=== PATIENT | female | born 1940 | race African-American/Black ===

== ENCOUNTER 2019-04-08 12:02 | Emergency (ER) | payer MEDICARE ==
[~2019-04-08] VITALS: Ht 172.7 cm; Wt 65.0 kg
[~2019-04-08 12:02] MED LIST: DONE5TAB7; GEMF600T; IBUP-2030; LOSA100T3; METO10TA3
[2019-04-08 12:38] LABS: BASOPHILS % 0.9 % (0.0-2.0); EOSINOPHILS % 6.5 % (0.0-5.0); HEMATOCRIT. 33.8 % (36.0-48.0); LYMPHOCYTES % 26.9 % (20.0-50.0); MEAN CORPUSCULAR HEMOGLOBIN 25.8 pg (28.0-32.0); MEAN CORPUSCULAR VOLUME 79.6 fL (81.0-99.0); MEAN PLATELET VOLUME 7.8 fl (7.4-10.4); MONOCYTES % 9.2 % (2.0-8.0); NEUTROPHILS % 56.5 % (40.0-76.0); PLATELET 264 x1000/uL (130-400); RED BLOOD CELL COUNT 4.25 mill/uL (4.2-5.4); RED CELL DISTRIBUTION WIDTH 15.4 % (11.6-14.6)
[2019-04-08 12:54] LABS: CHLORIDE 109 mEq/L (98-107)
[2019-04-08 13:14] LABS: CLARITY URINE CLEAR (CLEAR); COLOR URINE YELLOW (YELLOW); KETONES URINE NEGATIVE (NEGATIVE); LEUKOCYTE ESTERASE URINE NEGATIVE (NEGATIVE); NITRITE URINE NEGATIVE (NEGATIVE); OCCULT BLOOD URINE NEGATIVE (NEGATIVE); PH URINE 6.5 (4.5-8.0); PROTEIN URINE TRACE (NEGATIVE); SPECIFIC GRAVITY URINE 1.013 (1.005-1.030); UROBILINOGEN URINE 0.2 E.U./dL (0.2-1.0)
[2019-04-08 13:46] LABS: INR 1.1; PROTHROMBIN TIME 11.2 sec (9.6-11.0)
[2019-04-08] MEDS ORDERED: ACETAMINOPHEN 325MG TABLET PO PRN (15:15)
[2019-04-08] MEDS ORDERED: ONDANSETRON HCL 4MG/2ML INJ IV PRN (15:15)
[2019-04-08] MEDS ORDERED: DEXTROSE 50% WATER 50ML SYRINGE IV PRN (15:15)
[2019-04-08] MEDS ORDERED: LOSARTAN POTASSIUM 100 MG TABLET PO SCH (16:00)
[2019-04-08] MEDS ORDERED: BLOOD SUGAR DIAGNOSTIC STRIP TEST SCH (17:00)
[2019-04-08] MEDS ORDERED: INSULIN LISPRO 100 UNITS/ML SUBCUT SCH (18:20)
[2019-04-08] MEDS ORDERED: DOCUSATE SODIUM 250MG CAPSULE PO SCH (19:30)
[2019-04-08] MEDS ORDERED: CLONIDINE 0.1MG TABLET PO PRN (19:30)
[2019-04-08 20:42] VITALS: BP 145/67
[2019-04-09] MEDS ORDERED: DONEPEZIL HCL 5MG TABLET PO SCH (09:00)
== END 2019-04-08 20:45 ==
LOC: ER 12:02 → CANBEDREQ 21:05
DX: R10.30 Lower abdominal pain, unspecified (principal); E11.9 Type 2 diabetes mellitus without complications; I16.0 Hypertensive urgency; F03.90 Unspecified dementia, unspecified severity, without behavioral disturbance, psychotic disturbance, mood disturbance, and anxiety; Z60.2 Problems related to living alone; Z74.1 Need for assistance with personal care; Z75.1 Person awaiting admission to adequate facility elsewhere
CPT/HCPCS: 36415; 74176; 81003; 82962; 83036; 99284